=== PATIENT | female | born 1970 | race African-American/Black ===

== ENCOUNTER 2019-05-02 09:16 | Emergency (ER) | payer OTHER ==
[~2019-05-02] VITALS: Ht 170.2 cm; Wt 10.3 kg
[2019-05-02] MEDS ORDERED: ASPI-1191 PO (09:57)
[2019-05-02] MEDS ORDERED: HTN MED PO (09:57)
[2019-05-02] MEDS ORDERED: NAPR220C15 PO (09:57)
[2019-05-02] MEDS ORDERED: TiZANidine HCL 4 MG TABLET PO ONE (11:45)
[2019-05-02 14:09] VITALS: BP 122/74
== END 2019-05-02 14:11 | disposition home or self-care (01) ==
LOC: EMS 09:18
DX: S29.9XXA Unspecified injury of thorax, initial encounter (principal); M25.511 Pain in right shoulder; R07.89 Other chest pain; I10 Essential (primary) hypertension; F17.210 Nicotine dependence, cigarettes, uncomplicated; Z79.899 Other long term (current) drug therapy; Z98.890 Other specified postprocedural states; Z88.0 Allergy status to penicillin; W18.39XA Other fall on same level, initial encounter; Y93.89 Activity, other specified; Y92.69 Other specified industrial and construction area as the place of occurrence of the external cause; Y99.0 Civilian activity done for income or pay
CPT/HCPCS: 71101